=== PATIENT | male | born 1995 | race Caucasian/White ===

== ENCOUNTER 2023-09-14 07:42 | Outpatient (CLI) | payer BC, SELFPAY ==
--- NOTE | 2023-09-14 08:03 | US_ITS ---
FINAL REPORT CLINICAL HISTORY: LIVER ENZYMES HIGH FINDINGS: ULTRASOUND RIGHT UPPER QUADRANT Sonographic imaging of the right upper quadrant was obtained. The pancreas is partially obscured. There is increased echogenicity in the liver consistent with fatty infiltration. A 1.6 cm hypoechoic mass is seen in the liver. This is nonspecific. There is no evidence of gallstones. There is nonspecific gallbladder wall thickening. The gallbladder wall measures up to 4 mm. There is no biliary ductal dilatation. The common duct is normal at 2 mm. Limited images of the right kidney are unremarkable. IMPRESSION: Fatty liver. 1.6 cm hypoechoic mass in the liver. Further evaluation with a liver mass protocol CT or MRI is recommended. Nonspecific gallbladder wall thickening. Reviewed, Interpreted and Dictated by Melchor Torres III, MD Transcribed by Elsa Tanner Authenticated and [facility]
== END 2023-09-14 23:59 | disposition home or self-care (01) ==
LOC: RAD 07:48
PROVIDERS: PCP Nurse Practitioner; Visit Provider Nurse Practitioner
DX: R74.8 Abnormal levels of other serum enzymes (principal)
CPT/HCPCS: 76705

== ENCOUNTER 2023-09-28 08:16 | Outpatient (CLI) | payer BC, SELFPAY ==
--- NOTE | 2023-09-28 08:23 | CT_ITS ---
FINAL REPORT CLINICAL HISTORY: LIVER MASS COMPARISON: Ultrasound dated September 14, 2023 FINDINGS: CT ABDOMEN, WITH AND WITHOUT CONTRAST TECHNIQUE: Axial CT of the abdomen, without and with IV contrast administration. Oral contrast was not used. Abdomen: There is fatty change of the liver. There is focal fatty sparing near the gallbladder fossa. This could account for the pseudomass seen on recent ultrasound. Remaining solid abdominal organs are unremarkable. The gallbladder is present and appears unremarkable. There is no lymphadenopathy. Precontrast images showed no evidence of renal stone disease. IMPRESSION: Fatty change of the liver with focal fatty sparing. Area of fatty sparing could account for pseudomass seen on recent ultrasound. This study was performed using automated techniques to achieve radiation exposure as low as reasonably achievable Authenticated and [facility]
[2023-09-28] MEDS: IOPAMIDOL-370 (76%);100ML BOTTLE 75 ML IV (09:41)
[2023-09-28] MEDS: SODIUM CHLORIDE 0.9% 10ML SYR (RAD ONLY) 10 ML IV (09:41)
== END 2023-09-28 23:59 | disposition home or self-care (01) ==
LOC: RAD 08:17
PROVIDERS: PCP Nurse Practitioner; Visit Provider Nurse Practitioner
DX: R16.0 Hepatomegaly, not elsewhere classified (principal)
CPT/HCPCS: 74170; Q9967